=== PATIENT | male | born 1970 | race Two or more races ===

== ENCOUNTER 2017-11-21 06:53 | Inpatient (IN) | payer OTHER ==
[~2017-11-21] VITALS: Ht 165.1 cm; Wt 74.4 kg
[2017-11-21 07:04] VITALS: Ht 165.1 cm; Wt 74.4 kg
[2017-11-21 08:25] LABS: BASOPHIL % 0.4 % (0-2); PLATELET COUNT 308 x10^3mcL (130-400); RED CELL DISTRIBUTION WIDTH 13.2 % (11.5-14.5)
[2017-11-21 08:35] LABS: CALCIUM 8.8 mg/dL (8.5-10.1); CARBON DIOXIDE 28.6 mmol/L (21-32); CREATININE SERUM 1.5 mg/dL (0.7-1.3); POTASSIUM SERUM 3.7 mmol/L (3.5-5.1)
[2017-11-21 08:39] LABS: ALBUMIN 3.7 g/dL (3.4-5.0); BILIRUBIN TOTAL 0.5 mg/dL (0.20-1.00); TOTAL PROTEIN, SERUM 7.6 g/dL (6.4-8.2); URIC ACID 7.8 mg/dL (3.5-7.2)
[2017-11-21] MEDS ORDERED: HCTZ PO (09:33)
[2017-11-21] MEDS ORDERED: AMILORIDE PO (09:33)
[2017-11-21] MEDS ORDERED: METFORMIN HCL1000 MG PO (09:33)
[2017-11-21 10:29] LABS: CHOLESTEROL 168 mg/dL (<200); MAGNESIUM 2.3 mg/dL (1.8-2.4); PHOSPHOROUS 3.5 mg/dL (2.5-4.9)
[2017-11-21 10:32] LABS: HDL CHOLESTEROL 24 mg/dL (40-60); TRIGLYCERIDES 464 mg/dL (<150)
[2017-11-21 10:39] LABS: microscopic required? YES; urine erythrocyte TRACE (NEGATIVE)
[2017-11-21 10:53] LABS: FREE T4 1.19 ng/dL (0.76-1.46); FREE THYROXINE INDEX 3.5 ug/dL (1.4-4.5)
[2017-11-21 10:53] LABS: AMPHETAMINE QUAL UR NONE DETECTED (NEG <=1000)
[2017-11-21 10:54] VITALS: BP 160/88
[2017-11-21 12:49] VITALS: BP 139/86
[2017-11-21 18:23] VITALS: BP 145/93
[2017-11-21 20:49] VITALS: BP 142/84
[2017-11-22 05:24] VITALS: BP 136/80
[2017-11-22 06:28] LABS: BASOPHIL % 0.4 % (0-2); PLATELET COUNT 286 x10^3mcL (130-400); RED CELL DISTRIBUTION WIDTH 13.3 % (11.5-14.5)
[2017-11-22 06:29] LABS: CALCIUM 8.4 mg/dL (8.5-10.1); CARBON DIOXIDE 26.8 mmol/L (21-32); CHLORIDE SERUM 108 mmol/L (98-107); GFR1 > 60 mL/min; GLUCOSE SERUM 115 mg/dL (74-106); MAGNESIUM 2.1 mg/dL (1.8-2.4); PHOSPHOROUS 3.3 mg/dL (2.5-4.9); POTASSIUM SERUM 3.9 mmol/L (3.5-5.1); SODIUM SERUM 143 mmol/L (136-145)
[2017-11-22 09:36] VITALS: BP 136/84
[2017-11-22] MEDS ORDERED: AMILORIDE PO (10:59)
[2017-11-22] MEDS ORDERED: HCTZ PO (10:59)
[2017-11-22] MEDS ORDERED: LAC PO (11:01)
[2017-11-22] MEDS ORDERED: TRE400 PO (11:02)
[2017-11-22] MEDS ORDERED: NEU300 PO (11:04)
[2017-11-22] MEDS ORDERED: LEVAQUIN750 MG PO (11:14)
[2017-11-22 14:00] VITALS: BP 136/84
== END 2017-11-22 14:17 | disposition home or self-care (01) | DRG 602 ==
LOC: ED 06:53 → DU 09:39 → MU 11-22 11:08
PROVIDERS: Emergency Medicine; Family Medicine
DX: L03.032 Cellulitis of left toe (principal); N17.0 Acute kidney failure with tubular necrosis; N39.0 Urinary tract infection, site not specified; S92.415A Nondisplaced fracture of proximal phalanx of left great toe, initial encounter for closed fracture; I10 Essential (primary) hypertension; M10.9 Gout, unspecified; E11.65 Type 2 diabetes mellitus with hyperglycemia; E78.1 Pure hyperglyceridemia; E11.42 Type 2 diabetes mellitus with diabetic polyneuropathy; E11.51 Type 2 diabetes mellitus with diabetic peripheral angiopathy without gangrene; E87.8 Other disorders of electrolyte and fluid balance, not elsewhere classified; R31.9 Hematuria, unspecified; W18.39XA Other fall on same level, initial encounter; Y93.89 Activity, other specified; Y92.89 Other specified places as the place of occurrence of the external cause; Y99.8 Other external cause status
CPT/HCPCS: 82962; 83880; 84439; J0295; J1644; J1815; J3490; J7030; Q0092